=== PATIENT | male | born 1975 | race African-American/Black ===

== ENCOUNTER 2016-06-01 17:33 | Emergency (ER) | payer SELFPAY ==
[~2016-06-01] VITALS: Ht 177.8 cm; Wt 81.6 kg
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
[2016-06-01] MEDS ORDERED: IBUPROFEN600 MG ORAL (20:13)
[2016-06-01] MEDS ORDERED: AUGMENTIN 500-1 EACH ORAL (20:13)
[2016-06-01 20:24] VITALS: BP 117/73
--- NOTE | 2016-06-02 09:29 | Diagnostic Imaging Report ---
Indication: PAIN Technique: 3 or 4 views right hand Comparison: none Findings: No acute fractures. No dislocations. Joint spaces are preserved. Impression: Negative
--- NOTE | 2016-06-02 09:34 | Diagnostic Imaging Report ---
Indication: PAIN Technique: 3 views left hand Comparison: none Findings: No acute fractures. No dislocations. The joint spaces are preserved. Impression: Negative
== END 2016-06-01 20:24 | disposition home or self-care (01) ==
LOC: EMR 19:17
DX: S60.222A Contusion of left hand, initial encounter (principal); S60.221A Contusion of right hand, initial encounter; S61.431A Puncture wound without foreign body of right hand, initial encounter; Y04.0XXA Assault by unarmed brawl or fight, initial encounter; Y92.9 Unspecified place or not applicable
CPT/HCPCS: 99284

== ENCOUNTER 2016-06-10 17:13 | Emergency (ER) | payer SELFPAY ==
[~2016-06-10] VITALS: Ht 177.8 cm; Wt 81.6 kg
[~2016-06-10 17:13] MED LIST: AUGMENTIN 500-1 EACH ORAL; IBUPROFEN600 MG ORAL
[2016-06-10 17:30] VITALS: BP 126/79
[2016-06-10] MEDS ORDERED: Ketorolac 60mg Inj IM ONE (18:15)
[2016-06-10] MEDS ORDERED: TYLENOL EXTRA500 MG ORAL (18:23)
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
[2016-06-10 18:41] VITALS: BP 121/74
== END 2016-06-10 18:41 | disposition home or self-care (01) ==
LOC: EMR 18:35
DX: S60.222D Contusion of left hand, subsequent encounter (principal); Y04.0XXD Assault by unarmed brawl or fight, subsequent encounter
CPT/HCPCS: 96372; 99283